=== PATIENT | female | born 1975 | race Caucasian/White ===

== ENCOUNTER 2016-10-28 18:29 | Inpatient (IN) | payer OTHER, MEDICAID ==
[2016-10-28 18:30] VITALS: BMI 27.3
[2016-10-28 19:19] LABS: BASO # 0.1 K/uL (0.0-0.2); HEMATOCRIT 39.6 % (34.0-47.0); LYMPH # 1.5 K/uL (1.0-4.3); LYMPH % 16.3 % (20.0-40.0); MEAN CELL VOLUME 70.3 fL (81.0-99.0); MEAN CORPUSCULAR HEMOGLOBIN 22.8 pg (27.0-31.0); MEAN CORPUSCULAR HGB CONC 32.4 g/dL (33.0-37.0); MEAN PLATELET VOLUME 8.3 fL (7.2-11.7); MONO # 0.7 K/uL (0.0-0.8); MONO % 7.3 % (0.0-10.0); RED CELL DISTRIBUTION WIDTH 14.4 % (11.5-14.5); WHITE BLOOD COUNT 9.5 K/uL (4.8-10.8)
[2016-10-28 19:25] LABS: RBC URINE 23 /hpf (0-3); TRANSITIONAL EPITHIAL 1 /hpf (0-3); URINE BACTERIA MANY (<OCC); URINE BILIRUBIN NEGATIVE (NEGATIVE); URINE BLOOD 3+ (NEGATIVE); URINE COLOR Yellow (YELLOW); URINE GLUCOSE (UA) NORMAL (Normal); URINE KETONE NEGATIVE (NEGATIVE); URINE LEUKOCYTE ESTERASE 1+ Leu/uL (Negative); URINE PROTEIN NEGATIVE (NEGATIVE); URINE UROBILINOGEN NORMAL mg/dL (0.2-1.0); WBC URINE 8 /hpf (0-5)
[2016-10-28 19:28] LABS: CHLORIDE 105 mmol/L (98-107); POTASSIUM 3.8 mmol/L (3.6-5.2); SODIUM 140 mmol/L (132-148)
[2016-10-28 19:30] LABS: BILIRUBIN,TOTAL 2.2 mg/dL (0.2-1.3); CARBON DIOXIDE 25 mmol/L (22-30); GFR AFRICAN-AMERICAN > 60
[2016-10-28 19:31] LABS: ALB/GLOB RATIO 1.4 (1.0-2.1); ALKALINE PHOSPHATASE 65 U/L (38-126); ALT/SGPT 34 U/L (9-52); AST/SGOT 23 U/L (14-36); BLOOD UREA NITROGEN 18 mg/dL (7-17); CALCIUM 9.4 mg/dl (8.6-10.4); GLUCOSE,RANDOM 85 mg/dL (65-105); TOTAL PROTEIN 8.2 g/dL (6.3-8.3)
[2016-10-28 19:32] LABS: ALCOHOL SERUM < 10 mg/dl (0-10)
[2016-10-28 19:38] VITALS: O2SAT 99
--- NOTE | 2016-10-28 19:59 | C.PDOC ---
History Of Present Illness 41 year old female who was sent the ER by PMD Dr. Whitfield for a complaint of feeling depressed and suicidal over the past few weeks. Denies physical complaints at this time. Chief Complaint (Nursing): Psychiatric Evaluation History Per: Patient History/Exam Limitations: no limitations Onset/Duration Of Symptoms: Days Current Symptoms Are (Timing): Still Present Suicide/Self Injury Attempted (Context): None Modifying Factor(s): None Associated Symptoms: Depression, Suicidal Thoughts. denies: Suicidal Plan Involuntary Hold By: None Recent travel outside of the [place]: No Past Medical History Reviewed: Historical Data, Nursing Documentation, Vital Signs Vital Signs: Last Vital Signs Temp 98.8 F 10/28/16 19:37 Pulse 79 10/28/16 19:37 Resp 16 10/28/16 19:37 BP 123/74 10/28/16 19:37 Pulse Ox 99 10/28/16 20:13 - Medical History PMH: Anemia, Bipolar Disorder, Hypothyroidism Surgical History: No Surg Hx - [facility] Procedures CLOSURE SKIN & SUBCUTANEOUS NEC (10/08/01) INJECT/INFUSE NEC (12/30/06) PACKED CELL TRANSFUSION (08/26/14) PSYCHIAT DRUG THERAP NEC (11/17/06) Family History: States: Unknown Family Hx - Social History Hx Tobacco Use: No Hx Alcohol Use: No Hx Substance Use: No - Immunization History Hx Tetanus Toxoid Vaccination: No Hx Influenza Vaccination: No Hx Pneumococcal Vaccination: No Review Of Systems Constitutional: Negative for: Fever, Chills Gastrointestinal: Negative for: Nausea, Vomiting, Diarrhea Psych: Positive for: Depression, Suicidal ideation Physical Exam - Physical Exam Appears: Non-toxic, Other (Verbalizing suicidal ideation) Skin: Normal Color, Warm, Dry Head: Atraumatic, Normacephalic Oral Mucosa: Moist Chest: Symmetrical, No Tenderness Cardiovascular: Rhythm Regular, No Murmur Respiratory: Normal Breath Sounds, No Rales, No Rhonchi, No Wheezing Gastrointestinal/Abdominal: Soft, No Tenderness Neurological/Psych: Oriented x3, Normal Speech, Normal Cognition ED Course And Treatment - Laboratory Results Result Diagrams: 10/28/16 19:16 10/28/16 19:16 O2 Sat by Pulse Oximetry: 99 Pulse Ox Interpretation: Normal Disposition Discussed With : Ana Laura Gordon Doctor Will See Patient In The: Hospital Counseled Patient/Family Regarding: Diagnosis - Disposition Disposition: HOSPITALIZED Disposition Time: 20:57 Condition: STABLE Forms: [facility] ([place]) - POA Present On Arrival: None - Clinical Impression Clinical Impression: Bipolar 1 disorder, Depression, Urinary tract infection - Scribe Statement The provider has reviewed the documentation as recorded by the Scribizaiah Marcos All medical record entries made by the Scribe were at my direction and personally dictated by me. I have reviewed the chart and agree that the record accurately reflects my personal performance of the history, physical exam, medical decision making, and the department course for this patient. I have also personally directed, reviewed, and agree with the discharge instructions and disposition.
--- NOTE | 2016-10-28 22:28 | PCM.BM ---
Treatment Plan Problems - Problems identified on initial assessmt Depression Date Initiated: 10/28/16 Time Initiated: 22:26 Assessment reference: NA Status: Active Treatment assets and liabiliti Patient Assests: adapts well, cooperative, ADL independent, physically healthy, negotiates basic needs, cognitively intact Patient Liabilities: financial problems, medical problems (Hypothyroidism), language/speech ([place] speaking) - Milieu Protocol Maintain good personal hygiene: daily Encourage regular showers, daily Remind patient to perform daily oral care, other Assist patient to perform ADL's (Self) Conduct patient checks and document Observation sheet: Q15 minutes (Safety)
[2016-10-29] MEDS: Levothyroxine 25 MCG TAB PO SCH (06:46)
[2016-10-30] MEDS: Levothyroxine 25 MCG TAB PO SCH (06:40)
[2016-10-30] MEDS: Tmp-Smz 800 mg-160 mg DS Tab PO SCH (21:27)
[2016-10-31] MEDS: Levothyroxine 25 MCG TAB PO SCH (06:46)
[2016-10-31] MEDS: Naltrexone 25 MG TAB PO SCH (09:45)
[2016-10-31] MEDS: Tmp-Smz 800 mg-160 mg DS Tab PO SCH (09:45)
[2016-10-31] MEDS ORDERED: Pneumococcal 23-Valent Vaccine IM ONE (10:00)
--- NOTE | 2016-10-31 20:45 | PCM.PSYCH ---
Initial Psychiatric Evaluation - Initial Psychiatric Evaluation Type of Admission: Voluntary Legal Status: Capacity Chief Complaint (in patient's own words): I'M SAD Patient's Reaction to Hospitalization: I NEED TO SEE APSYCHIATRIST TO CHANGE MY MEDS, I DON'T SEE A PSYCHIATRIST. MY PCP PRESCRIBES MY PSYCH MEDS History of Present Illness and Precipitating Events: PT IS A41 YEAR OLD FEMALE WHO IS , HAS 3 ADULT CHILDREN AND LIVES WITH HER . PT HAS BEEN EXTREMELY DEPRESSED, NOT EATING NOT SLEEPING, NO ENERGY,NO MOTIVATION AND NOTHING PLEASES HER ANY MORE. PT IS ON LAMICITAL AND ABILIFY. SHE IS DIAGNOSED BIPOLAR. SHE HAD ONE PREVIOUS HOSPITALIZATION IN [place]. PT HAS PATHOLOGICAL GAMBLING SHE SPENDS 100-200 DOLLARS ON SCRATCH-OFFS. PT HAS NO LEGAL. NO NOR SUBSTANCE ABUSE HISTORY THERE IS NO FAMILY HISTORY OF PSYCHIATRIC ILLNESS. FATHER WHO IS WAS A RECOVERING ALCOHOLIC. 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 PTDENIES DELUSIONS AND HALLUCINATIONS. PT DENIES SI/HI. Current Medications: Active Medications Generic Name Dose Route Start Last Admin Trade Name Freq PRN Reason Stop Dose Admin Aripiprazole 10 mg 10/29/16 10:00 10/31/16 17:53 Abilify PO 10 mg BID LEONID Administration Ciprofloxacin 500 mg 10/31/16 18:30 10/31/16 18:41 Cipro PO 500 mg BID LEONID Administration Escitalopram Oxalate 10 mg 10/30/16 10:00 10/31/16 09:45 Lexapro PO 10 mg DAILY LEONID Administration Ibuprofen 600 mg 10/29/16 16:30 10/29/16 16:35 Motrin Tab PO 600 mg Q6 PRN Administration Pain, moderate (4-7) Lamotrigine 100 mg 10/29/16 10:00 10/31/16 09:45 Lamictal PO 100 mg DAILY LEONID Administration Levothyroxine Sodium 25 mcg 10/29/16 06:30 10/31/16 06:46 Synthroid PO 25 mcg DAILY@0630 LEONID Administration Naltrexone HCl 50 mg 10/30/16 10:00 10/31/16 09:45 Revia PO 50 mg DAILY LEONID Administration Past Psychiatric History - Past Psychiatric History Prior Professional Help: SEE HPI Pertinent Medical Hx (Current Medical&Sleep Prob, Allergies): Allergies Allergy/AdvReac Type Severity Reaction Status Date / Time No Known Allergies Allergy Verified 10/28/16 18:34 Aripiprazole [Abilify] 10 mg PO DAILY 08/25/14 Benztropine [Benztropine Mesylate] 1 mg PO QN 08/25/14 Levothyroxine [Synthroid] 0.2 mg PO DAILY 08/25/14 lamoTRIgine [LaMICtal] 100 mg PO DAILY 10/28/16 Review of Systems - Constitutional Constitutional: Malaise - EENT Eyes: UNREMARKABLE Ears: UNREMARKABLE Nose/Mouth/Throat: UNREMARKABLE - Breasts Breasts: UNREMARKABLE - Cardiovascular Cardiovascular: UNREMARKABLE - Respiratory Respiratory: UNREMARKABLE - Gastrointestinal Gastrointestinal: UNREMARKABLE - Genitourinary Genitourinary: UNREMARKABLE - Reproductive: Female Reproductive:Female: UNREMARKABLE - Menstruation Menstruation: Premenarche - Musculoskeletal Musculoskeletal: UNREMARKABLE - Integumentary Integumentary: UNREMARKABLE - Psychiatric Psychiatric: Anhedonia, Anxiety, Change in Appetite, Depression, Difficulty Concentrating, Hopelessness - Endocrine Endocrine: UNREMARKABLE - Hematologic/Lymphatic Hematologic: UNREMARKABLE Mental Status Examination - Personal Presentation Personal Presentation: Looks older than stated age - Affect Affect: Constricted - Motor Activity Motor Activity: Calm - Reliability in Providing Information Reliability in Providing Information: Good - Speech Speech: Organized - Formal Thought Process Formal Thought Process: No Impairment - Obsessions/Compulsions Obsessions: None Compulsions: None - Cognitive Functions Orientation: Person, Place, Situation, Time Sensorium: Alert Attention/Concentration: Attentive Abstract Thinking: [place] Judgement: Intact, as evidence by: Good judgement Memory: Recent intact, as evidence by: Ability to recall events of the day, Remote intact, as evidenced by: Ability to recall historical events - Risk Risk: Diminished functioning - Strength & Assets Inventory Strength & Assets Inventory: Intelligence, Family support - Limitations Limitations: Other Additional comments: GAMBLING DSM 5 DX - DSM 5 DSM 5 Diagnosis: BIPOLAR DEPRESSION PATHOLOGICAL GAMBLING HYPOTHYROIDISM - Recommended/Plan of Treatment Treatment Recommendations and Plan of Treatment: BIPOLAR DEPRESSION LAMICTAL ABILIFY SSRI SD CBT GROUP THERAPY SUPPORTIVE PSYCHOTHERAPY PATHOLOGICAL GAMBLING NALTREXONE SD CBT RECREATIONAL. MILIEU, GROUP THERAPY INDIVIDUAL SUPPORTIVE PSYCHOTHERAPY HYPOTHYROIDISM-SYNTHROID Projected ELOS: 10 DAYS Prognosis: GOOD Discharge Plan and Discharge Criteria: IMPROVED SYMPTOMS OF DEPRESSION
--- NOTE | 2016-10-31 20:58 | PCM.PYCHPN ---
Psychiatric Progress Note - Psychiatric Progress Note Patient seen today, length of contact: 15 Patient Chief Complaint: I AM HAVING TROUBLE SLEEPING Problems Identified/Issues Discussed: GAMBLING ADDICTION HEALTHY ADDICTION LIKE YOGA Medical Problems: NOTHING ACUTE Diagnostic Results: REVIEWED DSM 5 Symptoms Update: SLIGHTLY MORE ENERGY Medication Change: No Medical Record Reviewed: Yes Mental Status Examination - Cognitive Function Orientation: Person, Place, Situation, Time Memory: Intact Attention: WNL Concentration: Poor Association: WNL Fund of Knowledge: WNL - Mood Mood: Depressed, Anxious - Affect Affect: Constricted - Speech Speech: Appropriate - Formal Thought Process Formal Thought Process: No Impairment - Suicidal Ideation Suicidal Ideation: No - Homicidal Ideation Homicidal Ideation: No Goal/Treatment Plan - Goal/Treatment Plan Progress Toward Problem(s) and Goals/Treatment Plan: BIPOLAR DEPRESSION LAMICTAL ABILIFY SUPPORTIVE PSYCHOTHERAPY PATHOLOGICAL GAMBLING NALTREXONE [place] CBT SUPPORTIVE PSYCHOTHERAPY HYPOTHYROIDISM SYNTHOID Estimated Date of D/C: 11/07/16 - Smoking Cessation Smoking Cessation Initiated: No
--- NOTE | 2016-10-31 21:03 | PCM.PYCHPN ---
Psychiatric Progress Note - Psychiatric Progress Note Patient seen today, length of contact: 15 Patient Chief Complaint: I FEEL A LITTLE BETTER BUT I'M NOT READY TO GO HOME Problems Identified/Issues Discussed: NECESSITY OF SEEING A PSYCHIATRIST FOR MEDS Medical Problems: NOTHING ACUTE Diagnostic Results: REVIEWED Medication Change: No Medical Record Reviewed: Yes Mental Status Examination - Cognitive Function Orientation: Person, Place, Situation Memory: Intact Attention: WNL Concentration: Poor Fund of Knowledge: WNL - Mood Mood: Depressed, Anxious - Affect Affect: Constricted - Speech Speech: Appropriate - Formal Thought Process Formal Thought Process: No Impairment - Suicidal Ideation Suicidal Ideation: No - Homicidal Ideation Homicidal Ideation: No Goal/Treatment Plan - Goal/Treatment Plan Need for Continued Stay: Discharge may exacerbated symptoms, Severe functional impairment Progress Toward Problem(s) and Goals/Treatment Plan: BIPOLAR DEPRESS-SUPPORTIVE PSYCHOTHERAPY LAMICTAL ABILIFY PATHOLOGICAL GAMBLING NALTREXONE SUPPORTIVE PSYCHOTHERAPY [place] CBT HYPOTHYROIDISM SYNTHOID Estimated Date of D/C: 11/07/16 - Smoking Cessation Smoking Cessation Initiated: No
[2016-11-01] MEDS: Levothyroxine 25 MCG TAB PO SCH (06:02)
[2016-11-01] MEDS: Naltrexone 25 MG TAB PO SCH (09:28)
--- NOTE | 2016-11-01 13:32 | PCM.PYCHPN ---
Psychiatric Progress Note - Psychiatric Progress Note Patient seen today, length of contact: 15 Patient Chief Complaint: I'm a little depressed Problems Identified/Issues Discussed: The patient was seen, the chart reviewed, and case was discussed with staff. The patient is compliant with medication and has no complaints but states that it makes her "mouth move." Patient states that she is feeling good. Denies feelings of hopelessness, helplessness, anxiety, nervousness, irritability, and agitation. She reports no racing thoughts. Denies visual or auditory hallucinations. She does not feel like she is being watched or followed by anyone. Symptoms are improving, but needs more time to stabilize. After care discussed, support and psychoeducation given. Medication Change: No Medical Record Reviewed: Yes Mental Status Examination - Cognitive Function Orientation: Person, Place, Situation Memory: Intact Attention: WNL Concentration: Poor Fund of Knowledge: WNL - Mood Mood: Depressed, Anxious - Affect Affect: Constricted - Speech Speech: Appropriate - Formal Thought Process Formal Thought Process: No Impairment - Suicidal Ideation Suicidal Ideation: No - Homicidal Ideation Homicidal Ideation: No Goal/Treatment Plan - Goal/Treatment Plan Need for Continued Stay: Discharge may exacerbated symptoms, Severe functional impairment Progress Toward Problem(s) and Goals/Treatment Plan: Bipolar depression CBT [place] Supportive psychotherapy, group therapy Lamictal 100mg PO daily Abilify 10mg PO BID Lexapro 10mg PO daily Pathological gambling CBT [place] Supportive psychotherapy Naltrexone 50mg PO daily Hypothroidism Synthroid 25 mcg PO daily Estimated Date of D/C: 11/07/16 - Smoking Cessation Smoking Cessation Initiated: No
[2016-11-01 15:54] VITALS: PULSE 68
[2016-11-02] MEDS: Levothyroxine 25 MCG TAB PO SCH (06:09)
[2016-11-02 07:43] VITALS: BP 115/74; RESP 18; TEMP 98
--- NOTE | 2016-11-02 10:23 | PCM.PYCHDC ---
Mental Status Examination - Mental Status Examination Orientation: Person, Place, Situation, Time Memory: Intact Mood: Neutral Affect: Constricted Speech: Soft Attention: WNL Concentration: WNL Association: WNL Fund of Knowledge: WNL Formal Thought Process: No Impairment Description of patient's judgement and insight: good, fair Psychotic Thoughts and Behaviors: denies any AVH Suicidal Ideation: No Current Homicidal Ideation?: No Discharge Summary - Discharge Note Reason for Hospitalization: Pt is a 41 year old female who is , has 3 adult children and lives with her . Pt has been extremely depressed, not eating not sleeping, no energy, no motivation and nothing pleases her any more. Pt is on lamictal and abilify. She is diagnosed as bipolar. She had one previous hospitalization in [place]. 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 Pt has no legal. No nor substance abuse history there is no family history of psychiatric illness. Father who is was a recovering alcoholic. 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 Pt denies delusions and hallucinations. Consultations:: List each consultation separately and include: 1. Reason for request. 2. Findings. 3. Follow-up Summary of Hospital Course include:: 1. Description of specific treatment plan utilized for patients during their course of treatmen. 2. Summarize the time- course for resolution of acute symptoms and/or regressed behaviors. 3. Describe issues identified and worked on during hospitalization. 4. Describe medication utilized. 5. Describe medical problems identified and treated. 6. Reassessment of suicide risk Summary of Hospital Course: During the course of her stay, patient (pt) started progressively improving and she no longer remained anxious, depressed and suicidal. Her mood was getting better and she started attending groups and meetings and started socializing. The doses of her medications were maximized and patient denied any feelings of hopelessness, helplessness, and worthlessness, denied any problem with the sleep or appetite, denied suicidal ideation or homicidal ideation. Pt denied any auditory or visual hallucinations. Patient reported improvement in her mood and tolerated these medications very well and denied any side effects. - Final Diagnosis (DSM 5) Condition upon Discharge: GOOD DSM 5: Bipolar depression Pathological gambling Disposition: HOME/ ROUTINE Follow-up Treatment Plan: Education: Pt was educated and counseled about the risks and benefits of taking and not taking medications. Pt was educated and counseled about the risks of drinking and abusing drugs. Pt was educated and counseled to go to the ER or call 911 if pt develop suicidal ideation or homicidal ideation, worsening of symptoms or severe side effects of the meds. Prescriptions/Medication Reconciliation: ARIPiprazole [Abilify] 10 mg PO DAILY 14 Days Ciprofloxacin [Cipro] 500 mg PO BID #10 tab Escitalopram [Lexapro] 10 mg PO DAILY #14 tab lamoTRIgine [Lamictal] 100 mg PO DAILY #14 tab Levothyroxine [Synthroid] 25 mcg PO DAILY@0630 #14 tab Naltrexone [Revia] 50 mg PO DAILY #14 tab Sulfamethoxazole/Trimethoprim [Bactrim DS Tab] 1 tab PO Q12 #10 tab - Smoking Cessation Smoking Cessation Medication prescribed: No - Antipsychotic Medications Pt discharged on 2 or more routine antipsychotic medications: No
[2016-11-02] MEDS: Naltrexone 25 MG TAB PO SCH (10:25)
== END 2016-11-02 11:35 | disposition home or self-care (01) | DRG 885 ==
LOC: C.ER 18:29 → C.5E 20:59
PROVIDERS: ADMIT Psychiatry & Neurology Psychiatry; ATTEND Psychiatry & Neurology Psychiatry
PROC: GZHZZZZ Group Psychotherapy (ICD-10-PCS; principal; 2016-10-28)
PROC: GZ58ZZZ Individual Psychotherapy, Cognitive-Behavioral (ICD-10-PCS; 2016-10-28)
PROC: GZ56ZZZ Individual Psychotherapy, Supportive (ICD-10-PCS; 2016-10-28)
DX: F31.9 Bipolar disorder, unspecified (principal); N39.0 Urinary tract infection, site not specified; E03.9 Hypothyroidism, unspecified; F63.0 Pathological gambling